=== PATIENT | female | born 1975 | race American Indian/Alaskan Native ===

== ENCOUNTER 2018-10-11 11:58 | Outpatient (CLI) | payer OTHER ==
--- NOTE | 2018-10-11 14:24 | Mammography Report ---
BILATERAL DIGITAL SCREENING MAMMOGRAM with CAD: 10/11/18 11:58:00 CLINICAL: Routine screening. COMPARISON: None available. FINDINGS: There are bilateral scattered areas of fibroglandular density.No mass, architectural distortion or suspicious calcifications. IMPRESSION: No mammographic evidence of malignancy. BI-RADS CATEGORY: 1 -- Negative RECOMMENDATION: Routine mammographic screening in one year. COMMENT: Patient follow-up letters are generated by our [employer] application.
== END 2018-10-11 11:59 | disposition home or self-care (01) ==
LOC: SPVWC 11:58
PROVIDERS: ATTEND Student in an Organized Health Care Education/Training Program
DX: Z12.31 Encounter for screening mammogram for malignant neoplasm of breast (principal)
CPT/HCPCS: 77067